=== PATIENT | male | born 1960 | race African-American/Black ===

== ENCOUNTER 2018-05-22 20:50 | Emergency (ER) | payer OTHER ==
[~2018-05-22] VITALS: Ht 185.4 cm; Wt 75.3 kg
[~2018-05-22 20:50] MED LIST: ACET325T9 PO; AMLO10TA2 PO; ASPI-630 PO; METO-269 PO; MULT-223 PO; NAPR220C4 PO; NIAC125C PO; OMEP20CA9 PO; prostate
[2018-05-22 21:05] VITALS: BP 159/75
[2018-05-22] MEDS ORDERED: HYDR-971 PO (21:37)
--- NOTE | 2018-05-22 21:37 | PHYS DOC ---
Past Medical History Past Medical History: Heart Disease, Hypertension, Other Additional Past Medical Histor: prostate Past Surgical History: Other Additional Past Surgical Histo: cataract Left, right retina, hernia Alcohol Use: Heavy Drug Use: None Adult General Chief Complaint Chief Complaint: SHOULDER INJURY HPI HPI Patient is a 58 year old M who presents with left shoulder pain. Patient denies injury. He reports the pain started a couple of days ago and has progressively worsened. He reports the area is bruised. Review of Systems Review of Systems Constitutional: Denies fever or chills [] Musculoskeletal: Left shoulder pain, bruising Integument: Denies rash or skin lesions [] Neurologic: Denies focal weakness or sensory changes [] All other systems were reviewed and found to be within normal limits, except as documented in this note. Current Medications Current Medications Current Medications Medications (Trade) Dose Ordered Sig/Kaye Start Time Stop Time Status Last Admin Dose Admin Acetaminophen/ Hydrocodone Bitart (Lortab 5/325) 1 tab 1X ONCE 05/22/18 21:45 05/22/18 21:46 DC 05/22/18 21:56 1 TAB Allergies Allergies Allergies Coded Allergies Type Severity Reaction Last Updated Verified No Known Drug Allergies 03/15/14 No Physical Exam Physical Exam Constitutional: Well developed, well nourished, no acute distress, non-toxic appearance. [] HENT: Normocephalic, atraumatic Eyes: PERRLA, EOMI, conjunctiva normal, no discharge. [] Neck: Normal range of motion, no tenderness, supple, no stridor. [] Cardiovascular:Heart rate regular rhythm, no murmur [] Lungs & Thorax: Bilateral breath sounds clear to auscultation [] Skin: Warm, dry, small area of ecchymosis to left anterior, medial upper arm Extremities: Tenderness to palpation, limited ROM d/t pain Neurologic: Alert and oriented X 3, normal motor function, normal sensory function, no focal deficits noted. [] Psychologic: Affect normal, judgement normal, mood normal. [] Current Patient Data Vital Signs Vital Signs Date Time Temp Pulse Resp B/P (MAP) Pulse Ox O2 Delivery O2 Flow Rate FiO2 05/22/18 21:56 16 99 Room Air 05/22/18 21:05 98.7 63 159/75 (103) 98.7 EKG EKG [] Radiology/Procedures Radiology/Procedures [] Course & Med Decision Making Course & Med Decision Making Pertinent Labs and Imaging studies reviewed. (See chart for details) No indication for imaging at this time. Plan: norco rx, ice, sling, f/u with PCP, return precautions reviewed Suly Disclaimer Dragon Disclaimer This electronic medical record was generated, in whole or in part, using a voice recognition dictation system. Departure Departure Impression: Primary Impression: Shoulder pain, acute Disposition: HOME, SELF-CARE Condition: GOOD Referrals: ANDRES SPICER (PCP) Patient Instructions: Shoulder Pain Scripts Hydrocodone/Apap 5-325 (NORCO 5-325 TABLET) 1 Each Tablet 1 TAB PO PRN Q6HRS PRN for PAIN, #15 TAB 0 Refills Prov: XAVIER VIRK APRN 05/22/18 Problem Qualifiers Primary Impression: Shoulder pain, acute Laterality: left Qualified Codes: M25.512 - Pain in left shoulder XAVIER VIRK APRN May 22, 2018 21:37
[2018-05-22] MEDS ORDERED: HYDROcodone/APAP 5/325MG 1 TAB TABLET PO ONE (21:45)
== END 2018-05-22 22:04 | disposition home or self-care (01) ==
LOC: ER 20:50
DX: M25.512 Pain in left shoulder (principal); I11.9 Hypertensive heart disease without heart failure; F10.20 Alcohol dependence, uncomplicated; Y90.9 Presence of alcohol in blood, level not specified
CPT/HCPCS: 99283